=== PATIENT | male | born 1950 | race African-American/Black ===

== ENCOUNTER 2020-10-20 10:15 | Observation (INO) ==
[2020-10-20] MEDS ORDERED: ASPIRIN 325 MG TABLET PO STA (10:33)
[2020-10-20] MEDS ORDERED: NITROGLYCERIN 2% OINT 1 INCH/GM PACK TOP STA (11:08)
[2020-10-20 11:21] LABS: Basophils % 0.2 % (0.0-0.8); Eosinophils # 0.1 10*3/uL (0.0-0.87); Eosinophils % 1.2 % (0.00-10.9); Hematocrit 41.3 VOL% (42.0-52.0); Hemoglobin 13.3 GM/DL (14.0-18.0); Immature Granulocytes % 0.6 %; Immature Granulocytes Absolute 0.06 #; Lymphocytes # 1.7 10*3/uL (1.4-4.0); Lymphocytes % 17.6 % (21.2-54.2); Mean Corpuscular HGB Conc 32.2 GM/DL (32-36); Mean Corpuscular Volume 81.3 FL (87-102); Mean Platelet Volume 12.7 FL (9.6-12.0); Neutrophils % 74.4 % (38.7-73.9); Platelet Count 305 T/CUMM (130-400); Red Blood Count 5.08 MC/CUMM (3.8-5.5); Red Cell Distribution Width 17.1 % (9.3-17.3); White Blood Count 9.6 T/CUMM (4-12)
[2020-10-20 11:29] LABS: PT Patient Result 10.9 SECS (9.8-11.9); Partial Thromboplastin Time 23.4 SECS (23.9-33.8)
[2020-10-20 12:22] LABS: Alanine Aminotransferase 19 U/L (16-61); Albumin 3.8 G/DL (3.4-5.0); Alkaline Phosphatase 81 U/L (45-117); Aspartate Amino Transferase 13 U/L (0-37); Bilirubin,Total < 0.39 MG/DL (0.2-1.0); Blood Urea Nitrogen 15 MG/DL (7-18); Calcium 9.3 MG/DL (8.5-10.1); Carbon Dioxide 26 MMOL/L (21-32); Estimated Glom Filtration Rate 92 ML/MIN; Glucose 96 MG/DL (74-106); Osmolality,Calculated 270.1 MOS/KG (273-304); Potassium 4.2 MMOL/L (3.5-5.1); Sodium 135 MMOL/L (136-145); Total Protein 7.5 G/DL (6.4-8.2)
[2020-10-20] MEDS ORDERED: ONDANSETRON 4 MG/2 ML VIAL IV PRN (15:40)
[2020-10-20] MEDS ORDERED: CYCLOBENZAPRINE 10 MG TABLET PO PRN (16:01)
[2020-10-20] MEDS ORDERED: HydrOXYzine PAMOATE 25 MG CAPSULE PO PRN (16:01)
[2020-10-20] MEDS ORDERED: ALBUTEROL 2.5 MG/3 ML NEB RESP TX PRN (16:07)
[2020-10-20] MEDS: SODIUM CHLORIDE 0.9% 1,000 ML IV SCH (17:44)
[2020-10-20] MEDS: ENOXAPARIN 40 MG/0.4 ML SYRINGE SUBCUT SCH (17:45)
[2020-10-20] MEDS ORDERED: traMADol 50 MG TABLET PO PRN (20:31)
[2020-10-20] MEDS: ACETAMINOPHEN 325 MG TABLET PO PRN (20:37)
[2020-10-20] MEDS: GABAPENTIN 300 MG CAPSULE PO SCH (20:53)
[2020-10-20] MEDS: DOCUSATE SODIUM 100 MG CAPSULE PO SCH (20:53)
[2020-10-21] MEDS: SODIUM CHLORIDE 0.9% 1,000 ML IV SCH ×3 (03:13→18:52)
[2020-10-21] MEDS: ASPIRIN EC 81 MG TABLET PO SCH (09:06)
[2020-10-21] MEDS: GABAPENTIN 300 MG CAPSULE PO SCH ×3 (09:06→23:15)
[2020-10-21] MEDS: SERTRALINE 25 MG TABLET PO SCH (09:06)
[2020-10-21] MEDS: PANTOPRAZOLE 40 MG TABLET PO SCH (09:06)
[2020-10-21] MEDS: DOCUSATE SODIUM 100 MG CAPSULE PO SCH ×2 (09:06→23:15)
[2020-10-21] MEDS: ACETAMINOPHEN 325 MG TABLET PO PRN (09:06)
[2020-10-21] MEDS: TOPIRAMATE 25 MG TABLET PO SCH (09:07)
[2020-10-21] MEDS: PROPRANOLOL 10 MG TABLET PO SCH (09:08)
[2020-10-21] MEDS ORDERED: ALUM/MAG/SIMETH/LIDO VISC 1:1 30 ML BOTTLE PO ONE (13:22)
[2020-10-21] MEDS: ENOXAPARIN 40 MG/0.4 ML SYRINGE SUBCUT SCH (17:02)
[2020-10-21] MEDS ORDERED: ROSUVASTATIN 10 MG TABLET PO SCH (21:00)
[2020-10-22] MEDS: SODIUM CHLORIDE 0.9% 1,000 ML IV SCH ×5 (02:06→16:37)
[2020-10-22] MEDS: DOCUSATE SODIUM 100 MG CAPSULE PO SCH (08:40)
[2020-10-22] MEDS: SERTRALINE 25 MG TABLET PO SCH (08:40)
[2020-10-22] MEDS: TOPIRAMATE 25 MG TABLET PO SCH (08:40)
[2020-10-22] MEDS: GABAPENTIN 300 MG CAPSULE PO SCH ×2 (08:40→16:37)
[2020-10-22] MEDS: PANTOPRAZOLE 40 MG TABLET PO SCH (08:40)
[2020-10-22] MEDS: PROPRANOLOL 10 MG TABLET PO SCH (08:40)
[2020-10-22] MEDS: ASPIRIN EC 81 MG TABLET PO SCH (08:40)
[2020-10-22 16:27] VITALS: BP 128/72
[2020-10-22] MEDS ORDERED: PANTOPRAZOLE 40 MG TABLET PO SCH (21:00)
== END 2020-10-22 16:44 | disposition home or self-care (01) ==
LOC: N.EDINP 10:15 → N.ED 10:15 → N.EDINP 16:47 → N.TELEN 16:51
PROVIDERS: ADMIT Family Medicine; ATTEND Family Medicine